=== PATIENT | female | born 1985 | race African-American/Black ===

== ENCOUNTER 2018-01-29 05:16 | Emergency (ER) | payer MEDICAID ==
[~2018-01-29] VITALS: Ht 185.4 cm; Wt 64.0 kg
[2018-01-29 06:30] VITALS: BP 119/66
[2018-01-29] MEDS ORDERED: ACETAMINOPHEN 500MG TABLET PO ONE (06:30)
[2018-01-29] MEDS ORDERED: IBUPROFEN 400MG TABLET PO ONE (06:30)
== END 2018-01-29 07:03 | disposition home or self-care (01) ==
LOC: ER 05:16
DX: S39.012A Strain of muscle, fascia and tendon of lower back, initial encounter (principal); E03.9 Hypothyroidism, unspecified; F17.200 Nicotine dependence, unspecified, uncomplicated; F12.10 Cannabis abuse, uncomplicated; Z88.0 Allergy status to penicillin; V43.62XA Car passenger injured in collision with other type car in traffic accident, initial encounter; Y93.89 Activity, other specified; Y92.89 Other specified places as the place of occurrence of the external cause; Y99.8 Other external cause status
CPT/HCPCS: 99283

== ENCOUNTER 2018-01-29 10:58 | Emergency (ER) | payer MEDICAID ==
[~2018-01-29] VITALS: Ht 185.4 cm; Wt 64.0 kg
[2018-01-29 11:30] VITALS: BP 107/75
[2018-01-29] MEDS ORDERED: CETIRIZINE 10MG TABLET PO STA (11:41)
[2018-01-29] MEDS ORDERED: PREDNISONE 20MG TABLET PO ONE (11:45)
== END 2018-01-29 14:33 | disposition home or self-care (01) ==
LOC: ER 10:58
DX: T39.315A Adverse effect of propionic acid derivatives, initial encounter (principal); L50.9 Urticaria, unspecified; E03.9 Hypothyroidism, unspecified; Y92.89 Other specified places as the place of occurrence of the external cause; Z88.0 Allergy status to penicillin; Z88.6 Allergy status to analgesic agent; X58.XXXA Exposure to other specified factors, initial encounter
CPT/HCPCS: 99283; J7512